=== PATIENT | female | born 1985 | race African-American/Black ===

== ENCOUNTER 2019-04-11 22:02 | Emergency (ER) | payer SELFPAY ==
[~2019-04-11] VITALS: Ht 165.1 cm; Wt 127.3 kg
[2019-04-11 22:02] VITALS: BP 135/82
[2019-04-11] MEDS ORDERED: METH1TAB40 PO (22:16)
== END 2019-04-12 01:39 | disposition left against medical advice (07) ==
LOC: M ED 22:02
DX: M54.9 Dorsalgia, unspecified (principal); Z53.21 Procedure and treatment not carried out due to patient leaving prior to being seen by health care provider

== ENCOUNTER → 2019-04-12 | Outpatient (CLI) | payer OTHER ==
[~2019-04-12] MED LIST: METH1TAB40 PO
--- NOTE | 2019-04-12 11:50 | REP ---
LUMBAR SPINE, FIVE VIEWS: HISTORY: Back pain. There is no acute fracture or subluxation. The L3-4 and L4-5 intervertebral discs are decreased in height consistent with disc degeneration. The facet joints are normal in appearance. IMPRESSION: Degenerative change, as described above. Electronically Signed by Jamil Carter MD 04/12/2019 12:00 P
== END ==
LOC: M LRY 11:11
PROVIDERS: ATTEND Nurse Practitioner Family
DX: M54.5 Low back pain (principal)